=== PATIENT | female | born 1970 | race African-American/Black ===

== ENCOUNTER 2017-02-22 07:01 | Day surgery (SDC) | payer OTHER ==
[~2017-02-22 07:01] MED LIST: RINGER'S SOLUTION,LACTATED 1,000 ML IV PRN
[2017-02-22] MEDS ORDERED: RINGER'S SOLUTION,LACTATED 1,000 ML IV ONE (07:26)
[2017-02-22] MEDS ORDERED: LIDOCAINE HCL/EPINEPHRINE 50 ML VIAL IJ ONE (08:10)
--- NOTE | 2017-02-22 09:14 | OR ---
Operative Report - Dictated Report Narrative: DATE OF PROCEDURE: 02/22/2017 INDICATION: 46-year-old with severe anemia due to menometrorrhagia previously controlled with Mirena IUD which has now . The IUD was unable to be removed in the office due to lost strings and patient's inability to tolerate blind "fishing for strings". Patient desires insertion of a new Mirena IUD to control her bleeding and help resolve her anemia. PREOPERATIVE DIAGNOSIS: Severe anemia due to menometrorrhagia, lost IUD strings POSTOPERATIVE DIAGNOSIS: Same PROCEDURE: Hysteroscopy, D&C, Hysteroscopic removal of Mirena IUD and reinsertion of new Mirena IUD SURGEON: Natividad Dela Cruz D.O. MULTIFOLD OPERATOR: Or staff ANESTHESIA: IV sedation, Paracervical block ESTIMATED BLOOD LOSS: minimal URINE OUTPUT: not recorded FLUID REPLACEMENT: 400 mL of crystalloid FINDINGS: 10 week size uterus with Mirena IUD within uterine cavity with the left arm embedded in the uterine wall and strings wrapped up towards the fundus SPECIMEN(S): Endometrial curettings TECHNIQUE: The patient was taken to the operating room and placed in dorsal lithotomy position after adequate IV sedation was obtained. After sterile prep and drape, the anterior lip of the cervix was grasped with a long Allis clamp. A paracervical block was given using a 1% lidocaine with epinephrine solution. The uterus sounded to 10 cm. The 5 mm hysteroscope was inserted into the uterine cavity with findings as noted above. Using hysteroscopic graspers, the IUD strings were grasped and removed from the uterine cavity. Using a #2 curet , the entire uterine cavity was curettaged. The hysteroscope was reinserted noting thorough sampling of the entire uterine cavity. The new Mirena IUD was inserted and the strings were cut 1-2 cm from the cervical os. Sponge, lap, instrument, needle count correct x 2. DISPOSITION: The patient was transferred to the post anesthesia care unit in good condition.
[2017-02-22] MEDS: IBUPROFEN 800 MG TABLET PO PRN ×2 (09:15→09:16)
[2017-02-22 09:36] VITALS: BP 130/55
== END 2017-02-22 07:02 | disposition home or self-care (01) ==
LOC: AMB 07:01
PROVIDERS: ATTEND Obstetrics & Gynecology
PROC: 0UDB7ZX Extraction of Endometrium, Via Natural or Artificial Opening, Diagnostic (ICD-10-PCS; principal; 2017-02-22)
PROC: 0UJD8ZZ Inspection of Uterus and Cervix, Via Natural or Artificial Opening Endoscopic (ICD-10-PCS; 2017-02-22)
PROC: 0UPD8HZ Removal of Contraceptive Device from Uterus and Cervix, Via Natural or Artificial Opening Endoscopic (ICD-10-PCS; 2017-02-22)
PROC: 0UH97HZ Insertion of Contraceptive Device into Uterus, Via Natural or Artificial Opening (ICD-10-PCS; 2017-02-22)
DX: N92.1 Excessive and frequent menstruation with irregular cycle (principal); D64.9 Anemia, unspecified; N80.0 Endometriosis of uterus; I10 Essential (primary) hypertension; K21.9 Gastro-esophageal reflux disease without esophagitis; D25.9 Leiomyoma of uterus, unspecified; Z68.28 Body mass index [BMI] 28.0-28.9, adult; T83.39XA Other mechanical complication of intrauterine contraceptive device, initial encounter
CPT/HCPCS: 84703; 88305; 88312